=== PATIENT | male | born 1970 | race Caucasian/White ===

== ENCOUNTER 2018-07-17 12:19 | Emergency (ER) | payer OTHER ==
[~2018-07-17] VITALS: Ht 175.3 cm; Wt 78.0 kg
--- OUTSIDE RECORDS SUMMARY | 2018-07-17 12:24 | XMS REPORT ---
Author Author GENERATED, SYSTEM Organization Unknown Address Unknown Phone Unavailable Care Team Providers Care Care Process Manager Name Role Phone UNASSIGNED DOCTOR MD KIARA DOCTOR PP Reason For Visit Chief Complaint FALL Social History Functional Status Vital Signs Results DX Radiology from 06/23/2018 6:06 AMANKLE RIGHT 3 VIEWS History: pain. 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 Pt reports he slipped on wet floor while at [employer] and fell to the right side. Pt c/o headache, dizziness, neck pain, upper back pain, right elbow pain, right hip pain, and right knee pain. Denies LOC. Pt was able to stand and walk following the fall. Technique: 3 view ankle Priors: None. Findings: There is no fracture. The ankle mortise is intact. Impression: Unremarkable radiographs of the right ankle. Electronically signed by: Nik Schmitt Dictated: 06/23/2018 07:36 (Reference Range: not available) HIP RIGHT 2 VIEWS WITH PELVIS History: pain. 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 Pt reports he slipped on wet floor while at [employer] and fell to the right side. Pt c/o headache, dizziness, neck pain, upper back pain, right elbow pain, right hip pain, and right knee pain. Denies LOC. Pt was able to stand and walk following the fall. Technique: Single-view pelvis with two-view right hip Priors: None. Findings: There is no acute fracture. The hip is in normal alignment. There are no significant degenerative changes. Impression: No acute findings. Electronically signed by: Nik Schmitt Dictated: 06/23/2018 07:37 (Reference Range: not available) KNEE RIGHT 3 VIEWS History: pain. 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 Pt reports he slipped on wet floor while at [employer] and fell to the right side. Pt c/o headache, dizziness, neck pain, upper back pain, right elbow pain, right hip pain, and right knee pain. Denies LOC. Pt was able to stand and walk following the fall. Technique: 3 view knee performed. Priors: None. Findings: No acute fractures or subluxations are identified. There is no joint effusion. Impression: Unremarkable radiographs of the right knee. Electronically signed by: Nik Schmitt Dictated: 06/23/2018 07:37 (Reference Range: not available) CT Scan from 06/23/2018 5:43 AMCT CEREBRAL W/O CONTRAST History: fall pain. 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 Pt reports he slipped on wet floor while at [employer] and fell to the right side. Pt c/o headache, dizziness, neck pain, upper back pain, right elbow pain, right hip pain, and right knee pain. Denies LOC. Pt was able to stand and walk following the fall. Technique: All CT scans at are performed using dose optimization techniques as appropriate to a performed exam including the following: Automated exposure control Adjustment of the mA and/or kV according to patient size Use of iterative reconstruction technique Priors: None. Findings: Ventricles and Extra axial spaces: Normal in size and morphology for the patient's age. Hemorrhage: None. Cerebral parenchyma: Normal. Mass effect/midline shift: None. Brainstem/Cerebellum: Normal. Calvarium: Normal. Visualized Paranasal sinuses/Mastoids: Clear. Impression: Unremarkable CT scan of the head. Electronically signed by: Nik Schmitt Dictated: 06/23/2018 07:33 (Reference Range: not available) CT SPINE CERVICAL W/O CONTRAST History: fall pain. 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 Pt reports he slipped on wet floor while at [employer] and fell to the right side. Pt c/o headache, dizziness, neck pain, upper back pain, right elbow pain, right hip pain, and right knee pain. Denies LOC. Pt was able to stand and walk following the fall. Technique: All CT scans at are performed using dose optimization techniques as appropriate to a performed exam including the following: Automated exposure control Adjustment of the mA and/or kV according to patient size Use of iterative reconstruction technique Priors: None. Findings: Cervical alignment is within normal limits. There is no acute fracture. Disc spaces are well maintained. No focal disc protrusions or significant central spinal stenosis is identified. The soft tissues are unremarkable. The lung apices are unremarkable. Impression: Unremarkable CT of the cervical spine. Electronically signed by: Nik Schmitt Dictated: 06/23/2018 07:34 (Reference Range: not available) CT SPINE THORACIC W/O CONTRAST History: fall pain. 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 Pt reports he slipped on wet floor while at [employer] and fell to the right side. Pt c/o headache, dizziness, neck pain, upper back pain, right elbow pain, right hip pain, and right knee pain. Denies LOC. Pt was able to stand and walk following the fall. Technique: All CT scans at are performed using dose optimization techniques as appropriate to a performed exam including the following: Automated exposure control Adjustment of the mA and/or kV according to patient size Use of iterative reconstruction technique Priors: None. Findings: Thoracic alignment is within normal limits No acute Fractures or subluxations are identified. There several chronic Schmorl's nodes identified in the endplates of the mid and lower thoracic spine. Disc spaces are well maintained. No focal disc protrusions or significant central spinal stenosis is identified. Impression: Unremarkable CT of the thoracic spine. Electronically signed by: Nik Schmitt Dictated: 06/23/2018 07:36 (Reference Range: not available) Problems Encounter Diagnosis No relevant problems exist. Encounters Encounter Diagnosis No relevant problems exist. Plan of Care Procedures No relevant procedures performed. Immunizations No immunizations administered or ordered. Hospital Course Hospital Discharge Instructions Allergies, Adverse Reactions, Alerts This section is product support representative of the current allergy information, at the time of the CCD generation. In the case of regeneration of the CCD, the allergy information may not reflect the state of known allergies at the time of the CCD' s subject visit. * Latex Allergy has not been assessed. * IV Contrast Allergy has not been assessed. Medication Medication reconciliation has not been performed.
--- OUTSIDE RECORDS SUMMARY | 2018-07-17 12:25 | XMS REPORT ---
Author Author GENERATED, SYSTEM Organization Unknown Address Unknown Phone Unavailable Care Team Providers Care Head Rose Grower Name Role Phone UNASSIGNED DOCTOR , DOCTOR PP Reason For Visit Chief Complaint BACK PAIN, DIARRHEA Social History Functional Status Vital Signs Results Chemistry from 06/09/2018 6:34 PM*COCAINE NEGATIVE NG/ML (NEG <150 NG/ML) *PCP NEGATIVE NG/ML (NEG <25 NG/ML) *CANNABINOIDS NEGATIVE MG/DL (NEG <50 MG/DL) *BENZODIAZEINE NEGATIVE NG/ML (NEG <200 NG/ML) *METHAMPHETAMINE/AMPHETAMINE NEGATIVE NG/ML (NEG <500 NG/ML) *BARBITURATES NEGATIVE NG/ML (NEG <200 NG/ML) *OPIATES POSITIVE NG/ML A (NEG <300 NG/ML) Chemistry from 06/09/2018 5:55 PMSODIUM 137 MMOL/L (136-145 MMOL/L) POTASSIUM 3.8 MMOL/L (3.5-5.1 MMOL/L) CHLORIDE 101 MMOL/L (98-107 MMOL/L) TCO2 27.1 MMOL/L (21.0-32.0 MMOL/L) *ANION GAP 8.9 MMOL/L (8.0-16.0 MMOL/L) BUN 7 MG/DL (7-18 MG/DL) CREATININE 1.14 MG/DL (0.70-1.30 MG/DL) *BUN/CREATININE RATIO 6.1 L (9.1-17.0 ) GLUCOSE 133 MG/DL H (65-99 MG/DL) *GFR EST NON AFR [place] 76 ML/MIN (Reference Range: not available) *GFR EST AFR AMER 88 ML/MIN (Reference Range: not available) CALCIUM 8.3 MG/DL L (8.5-10.1 MG/DL) BILIRUBIN TOTAL 0.30 MG/DL (0.20-1.00 MG/DL) TOTAL PROTEIN 7.2 GM/DL (6.4-8.2 GM/DL) ALBUMIN 3.9 GM/DL (3.4-5.0 GM/DL) *GLOBULIN 3.3 GM/DL (2.3-3.5 GM/DL) *A/G RATIO 1.2 L (1.5-2.2 ) ALK PHOS 67 U/L (46-116 U/L) ALT (SGPT) 82 U/L H (14-59 U/L) AST (SGOT) 24 U/L (15-37 U/L) LIPASE 80 U/L (73-393 U/L) Hematology from 06/09/2018 5:55 PMWBC 11.8 X10e3/UL H (3.6-11.2 X10e3/UL) RBC 5.15 X10e6/UL (4.06-5.63 X10e6/UL) HEMOGLOBIN 15.2 G/DL (12.5-16.3 G/DL) HEMATOCRIT 45.1 % (36.7-47.1 %) *MCV 87.6 FL (80.0-100.0 FL) *MCH 29.6 PG (27.0-33.0 PG) *MCHC 33.8 G/DL (32.0-36.0 G/DL) *RDW 14.2 % (12.3-17.0 %) *RDWSD 43.8 (37.1-47.8 ) PLATELET 277 X10e3/UL (159-386 X10e3/UL) *MPV 9.6 FL (7.4-10.4 FL) AUTOMATED DIFF PERFORMED (Reference Range: not available) SEGS 82.3 % (Reference Range: not available) *LYMPHOCYTES 13.3 % (Reference Range: not available) *MONOCYTES 3.6 % (Reference Range: not available) *EOSINOPHILS 0.4 % (Reference Range: not available) *BASOPHILS 0.4 % (Reference Range: not available) *ABSOLUTE NEUTROPHILS 9.70 X10e3/UL H (1.80-7.80 X10e3/UL) *ABSOLUTE LYMPHOCYTES 1.60 X10e3/UL (1.00-3.00 X10e3/UL) *ABSOLUTE MONOCYTES 0.40 X10e3/UL (0.30-1.00 X10e3/UL) *ABSOLUTE EOSINOPHILS 0.00 X10e3/UL (0.00-0.50 X10e3/UL) *ABSOLUTE BASOPHILS 0.00 X10e3/UL (0.00-0.20 X10e3/UL) Urinalysis from 06/09/2018 6:34 PM* Status: Final Result URINALYSIS Specimen Number: [id number] Sample Collection Date/Time: 06/09/2018 6:34 PM Specimen Source: *URINE COLOR COLORLESS (COLORLESS - CALE ) *URINE APPEARANCE CLEAR (CLEAR ) URINE PH 6.5 (5.0-8.0 ) URINE SPECIFIC GRAVITY 1.005 (1.001-1.035 ) *URINE GLUCOSE NEGATIVE MG/DL (NEGATIVE MG/DL) *URINE BILIRUBIN NEGATIVE (NEGATIVE ) *URINE KETONES NEGATIVE MG/DL (NEGATIVE MG/DL) *URINE BLOOD NEGATIVE (NEGATIVE ) *URINE PROTEIN 10 MG/DL A (NEGATIVE MG/DL) *URINE UROBILINOGEN NORMAL EU/DL (NORMAL (0.2-1.0) EU/DL) *URINE NITRITES NEGATIVE (NEGATIVE ) *URINE LEUKOCYTES NEGATIVE (NEGATIVE ) Problems Encounter Diagnosis No relevant problems exist. Encounters Encounter Diagnosis No relevant problems exist. Plan of Care Procedures No relevant procedures performed. Immunizations No immunizations administered or ordered. Hospital Course Hospital Discharge Instructions Allergies, Adverse Reactions, Alerts This section is career services representative of the current allergy information, at [...]
--- OUTSIDE RECORDS SUMMARY | 2018-07-17 12:25 | XMS REPORT ---
Author Author Tristen Matthews Organization Unknown Address [address] [place], [place] [id number] Phone Care Team Providers Care Physicist [employer] Name Role Phone Lewisadriana Tristen Butcher PP Unavailable Reason for Referral No Reason for Referral was given. History of Present Illness No HPI available. Problems * Normal Routine History And Physical Adult (V70.0); (Active) * Anxiety (Symptom) (300.00); (Active) * Hyperlipidemia (272.4); (Active) * Lower Back Pain (724.2); (Active) * Inguinal HerniaLeft; (550.90); (Active) Medication * Lortab 10-500 MG Oral Tablet; TAKE 1 TABLET BY MOUTH EVERY 4-6 HOURS (NO MORE THAN 8 TABS IN 24 HOURS); Start Date: 03/10/2013 (Active) Allergies and Adverse Reactions * No Known Drug Allergies (Active) Past Medical History * No Significant Medical History Procedures Procedure Procedure Date Date Completed Status Surgery - - Active Family History * Paternal history of Coronary Artery Disease (Active) * Maternal grandmother's history of Type 2 Diabetes Mellitus (Active) * Paternal history of Hyperlipidemia (Active) * Paternal grandfather's history of Hyperlipidemia (Active) * Maternal grandmother's history of Breast Cancer Comments: at 40 (V16.3); (Active) Social History * Occupation: Comments: [employer] (Active) * Tobacco Use Comments: occasionally quit 10 years ago (V15.82); (Active ) * Marital History - (V61.03); (Active) * Former Smoker (V15.82); (Active) * No History of Alcohol Use (Active) Vital Signs Date Description Test Result 03 May 2013 09:08 AM recorded by: Sandra Pierce Heart Rate 87 /min Resipration Rate 14 /min O2 SAT 99 % Advance Directives * No Advance Directives available. Encounters * Appointment 05/03/2013
--- OUTSIDE RECORDS SUMMARY | 2018-07-17 12:25 | XMS REPORT ---
Author Author GENERATED, SYSTEM Organization Unknown Address Unknown Phone Unavailable Care Team Providers Care Habilitation Training Specialist Name Role Phone UNASSIGNED DOCTOR , DOCTOR PP Reason For Visit Chief Complaint VOMITING Social History Functional Status Vital Signs Results Chemistry from 06/16/2018 6:50 PMSODIUM 139 MMOL/L (136-145 MMOL/L) POTASSIUM 4.1 MMOL/L (3.5-5.1 MMOL/L) CHLORIDE 106 MMOL/L (98-107 MMOL/L) TCO2 25.7 MMOL/L (21.0-32.0 MMOL/L) *ANION GAP 7.3 MMOL/L L (8.0-16.0 MMOL/L) BUN 13 MG/DL (7-18 MG/DL) CREATININE 1.08 MG/DL (0.70-1.30 MG/DL) *BUN/CREATININE RATIO 12.0 (9.1-17.0 ) GLUCOSE 111 MG/DL H (65-99 MG/DL) *GFR EST NON AFR [place] 81 ML/MIN (Reference Range: not available) *GFR EST AFR AMER >90 ML/MIN (Reference Range: not available) CALCIUM 8.1 MG/DL L (8.5-10.1 MG/DL) BILIRUBIN TOTAL 0.20 MG/DL (0.20-1.00 MG/DL) TOTAL PROTEIN 6.7 GM/DL (6.4-8.2 GM/DL) ALBUMIN 3.8 GM/DL (3.4-5.0 GM/DL) *GLOBULIN 2.9 GM/DL (2.3-3.5 GM/DL) *A/G RATIO 1.3 L (1.5-2.2 ) ALK PHOS 59 U/L (46-116 U/L) ALT (SGPT) 44 U/L (14-59 U/L) AST (SGOT) 17 U/L (15-37 U/L) LIPASE 110 U/L (73-393 U/L) Hematology from 06/16/2018 6:50 PMWBC 8.8 X10e3/UL (3.6-11.2 X10e3/UL) RBC 4.68 X10e6/UL (4.06-5.63 X10e6/UL) HEMOGLOBIN 14.0 G/DL (12.5-16.3 G/DL) HEMATOCRIT 40.9 % (36.7-47.1 %) *MCV 87.2 FL (80.0-100.0 FL) *MCH 29.8 PG (27.0-33.0 PG) *MCHC 34.2 G/DL (32.0-36.0 G/DL) *RDW 14.1 % (12.3-17.0 %) *RDWSD 43.8 (37.1-47.8 ) PLATELET 238 X10e3/UL (159-386 X10e3/UL) *MPV 9.1 FL (7.4-10.4 FL) AUTOMATED DIFF PERFORMED (Reference Range: not available) SEGS 60.7 % (Reference Range: not available) *LYMPHOCYTES 23.3 % (Reference Range: not available) *MONOCYTES 6.8 % (Reference Range: not available) *EOSINOPHILS 8.7 % (Reference Range: not available) *BASOPHILS 0.5 % (Reference Range: not available) *ABSOLUTE NEUTROPHILS 5.40 X10e3/UL (1.80-7.80 X10e3/UL) *ABSOLUTE LYMPHOCYTES 2.10 X10e3/UL (1.00-3.00 X10e3/UL) *ABSOLUTE MONOCYTES 0.60 X10e3/UL (0.30-1.00 X10e3/UL) *ABSOLUTE EOSINOPHILS 0.80 X10e3/UL H (0.00-0.50 X10e3/UL) *ABSOLUTE BASOPHILS 0.00 X10e3/UL (0.00-0.20 X10e3/UL) Problems Encounter Diagnosis No relevant problems exist. Encounters Encounter Diagnosis No relevant problems exist. Plan of Care Procedures No relevant procedures performed. Immunizations No immunizations administered or ordered. Hospital Course Hospital Discharge Instructions Allergies, Adverse Reactions, Alerts This section is health and safety representative of the current allergy information, at [...]
--- OUTSIDE RECORDS SUMMARY | 2018-07-17 12:25 | XMS REPORT ---
Author Author Tristen Matthews Organization Unknown Address [address] [place], [place] [id number] Phone Care Team Providers Care Railroad Crane Operator Name Role Phone Lewisadriana Tristen Butcher PP [...] (V16.3); (Active) Social History * Occupation: Comments: [email or web address] (Active) * Tobacco Use Comments: occasionally quit 10 years ago (V15.82); (Active ) * Marital History - (V61.03); (Active) * Former Smoker (V15.82); (Active) * No History of Alcohol Use (Active) Vital Signs Date Description Test Result 13 Apr 2013 01:33 PM recorded by: Divina Saldaña Temperature 97.9 F Heart Rate 67 /min O2 SAT 97 % Advance Directives * No Advance Directives available. Encounters * AUDIT 04/14/2013
--- OUTSIDE RECORDS SUMMARY | 2018-07-17 12:25 | XMS REPORT ---
Author Author Tristen Matthews Organization Unknown Address [address] [place], [place] [id number] Phone Care Team Providers Care Oracle Specialist Name Role Phone Lewisadriana Tristen Butcher PP [...] (V16.3); (Active) Social History * Occupation: Comments: [employer] (Active) * Tobacco Use Comments: occasionally quit 10 years ago (V15.82); (Active ) * Marital History - (V61.03); (Active) * Former Smoker (V15.82); (Active) * No History of Alcohol Use (Active) Vital Signs Date Description Test Result 05 Apr 2013 02:16 PM recorded by: Sandra Gabriel Temperature 97.6 F Heart Rate 83 /min Resipration Rate 16 /min Advance Directives * No Advance Directives available. Encounters * AUDIT 04/06/2013
--- OUTSIDE RECORDS SUMMARY | 2018-07-17 12:25 | XMS REPORT ---
Author Author GENERATED, SYSTEM Organization Unknown Address Unknown Phone Unavailable Care Team Providers Care Solutions Specialist Name Role Phone UNASSIGNED DOCTOR , DOCTOR PP Reason For Visit Chief Complaint ABD PAIN,LEFT WITHOUT BEING SEEN Social History Functional Status Vital Signs Results Problems Encounter Diagnosis No relevant problems exist. Encounters Encounter Diagnosis No relevant problems exist. Plan of Care Procedures No relevant procedures performed. Immunizations No immunizations administered or ordered. Hospital Course Hospital Discharge Instructions Allergies, Adverse Reactions, Alerts This section is inventory representative of the current allergy information, at [...]
--- OUTSIDE RECORDS SUMMARY | 2018-07-17 12:25 | XMS REPORT | Referral Summary ---
Author Author [facility] Organization [facility] Address Unknown Phone Unavailable Care Team Providers Care Geodetic Survey Director Name Role Phone Mann Beltran PCP Encounter VC Date(s): 11/01/17 - 11/01/17 [facility] [address] [place] [address] Discharge Diagnosis: Muscle strain Discharge Diagnosis: Hip pain Discharge Disposition: 01-Home or Self Care Attending Physician: Dolly Olivarez MD Admitting Physician: Dolly Olivarez MD Vital Signs Most recent to 1 oldest [Reference Range]: Temperature Oral 36.6 degC [35.8-37.3 degC] (11/01/17 3:30 PM) Peripheral Pulse 72 bpm Rate [60-100 bpm] (11/01/17 4:45 PM) Respiratory Rate 16 br/min [14-20 br/min] (11/01/17 4:45 PM) Blood Pressure 125/87 mmHg [90-140/60-90 mmHg] (11/01/17 4:45 PM) SpO2 97 % (11/01/17 4:45 PM) Problem List Condition Effective Dates Status Health Status Informant Chronic low back Active patient pain(Confirmed) Depression(Confirmed Active patient ) Allergies, Adverse Reactions, Alerts No Known Allergies Medications gabapentin 300 mg oral capsule mg caps, Oral, TID, 0 Refill(s) Start Date: 11/01/17 Status: Ordered Icy Hot topical ointment 1 sophia, Topical, TID, # 30 g, 0 Refill(s) Start Date: 11/01/17 Stop Date: 11/05/17 Status: Ordered Lexapro 10 mg oral tablet mg tabs, Oral, Daily, 0 Refill(s) Start Date: 11/01/17 Status: Ordered naproxen 250 mg oral tablet 250 mg 1 tabs, Oral, q8hr, as needed for pain, # 12 tabs, 0 Refill(s) Start Date: 11/01/17 Stop Date: 11/04/17 Status: Ordered Xanax Oral, TID, 0 Refill(s) Start Date: 11/01/17 Status: Ordered Results Toxicology Most recent to 1 oldest [Reference Range]: U Amphetamine Scrn Negative (11/01/17 3:52 PM) U Cocaine Scrn Negative (11/01/17 3:52 PM) U Cannab Scrn Negative (11/01/17 3:52 PM) U Opiate Scrn Negative (11/01/17 3:52 PM) U PCP Scrn Negative (11/01/17 3:52 PM) U Benzodiazepine Positive Scrn *ABN* (11/01/17 3:52 PM) U Barbiturate Scrn Negative (11/01/17 3:52 PM) Methadone Lvl Negative (11/01/17 3:52 PM) Tricyclics Negative 1 (11/01/17 3:52 PM) 1Result Comment: Cut-off concentrations: Amphetamines: 1000 ng/mL Cocaine: 300 ng/mL Cannabinoid: 50 ng/mL Opiate: 300 ng/mL Phencyclidine (PCP): 25 ng/mL Benzodiazepine: 200 ng/mL Barbiturate: 200 ng/mL Methadone: 300 ng/mL Tricyclic: 300 ng/mL The urine drug screen assays are qualitative screens. A more specific GC/MS method must be performed to obtain a confirmed analytical result. Unconfirmed screening results must not be used for non-medical purposes(e.g. employment or legal testing) Urinalysis Most recent to 1 oldest [Reference Range]: UA Color Lt Yellow (11/01/17 3:52 PM) UA Appear Clear (11/01/17 3:52 PM) UA pH [5.0-8.0] 7.0 (11/01/17 3:52 PM) UA Leuk Est Negative [Negative] (11/01/17 3:52 PM) UA Nitrite Negative [Negative] (11/01/17 3:52 PM) UA Protein Negative [Negative] (11/01/17 3:52 PM) UA Glucose Negative [Negative] (11/01/17 3:52 PM) UA Ketones Negative [Negative] (11/01/17 3:52 PM) UA Urobilinogen Negative [<1.0] (11/01/17 3:52 PM) UA Bili [Negative] Negative (11/01/17 3:52 PM) UA Blood [Negative] Negative (11/01/17 3:52 PM) UA Spec Grav 1.004 [1.003-1.030] (11/01/17 3:52 PM) Type Clean Catch (11/01/17 3:52 PM) Immunizations No data available for this section Procedures No data available for this section Social History Social History Type Response Smoking Status 4 or less cigarettes(less than 1/4 pack)/day in last 30 days entered on: 11/01/17 Assessment and Plan No data available for this section
--- OUTSIDE RECORDS SUMMARY | 2018-07-17 12:25 | XMS REPORT ---
Author Author GENERATED, SYSTEM Organization Unknown Address Unknown Phone Unavailable Care Team Providers Care System Development Engineer Name Role Phone UNASSIGNED DOCTOR , DOCTOR PP Reason For Visit Chief Complaint ABD PAIN Social History Functional Status Vital Signs Results Chemistry from 06/01/2018 11:46 AMSODIUM 139 MMOL/L (136-145 MMOL/L) POTASSIUM 3.9 MMOL/L (3.5-5.1 MMOL/L) CHLORIDE 101 MMOL/L (98-107 MMOL/L) TCO2 27.7 MMOL/L (21.0-32.0 MMOL/L) *ANION GAP 10.3 MMOL/L (8.0-16.0 MMOL/L) BUN 12 MG/DL (7-18 MG/DL) CREATININE 1.09 MG/DL (0.70-1.30 MG/DL) *BUN/CREATININE RATIO 11.0 (9.1-17.0 ) GLUCOSE 109 MG/DL H (65-99 MG/DL) *GFR EST NON AFR [place] 80 ML/MIN (Reference Range: not available) *GFR EST AFR AMER >90 ML/MIN (Reference Range: not available) CALCIUM 9.4 MG/DL (8.5-10.1 MG/DL) BILIRUBIN TOTAL 0.40 MG/DL (0.20-1.00 MG/DL) TOTAL PROTEIN 7.8 GM/DL (6.4-8.2 GM/DL) ALBUMIN 4.4 GM/DL (3.4-5.0 GM/DL) *GLOBULIN 3.4 GM/DL (2.3-3.5 GM/DL) *A/G RATIO 1.3 L (1.5-2.2 ) ALK PHOS 67 U/L (46-116 U/L) ALT (SGPT) 43 U/L (14-59 U/L) AST (SGOT) 20 U/L (15-37 U/L) LIPASE 124 U/L (73-393 U/L) C-REACTIVE PROTEIN 0.08 MG/DL (0.00-0.30 MG/DL) Hematology from 06/01/2018 11:46 AMWBC 11.6 X10e3/UL H (3.6-11.2 X10e3/UL) RBC 5.47 X10e6/UL (4.06-5.63 X10e6/UL) HEMOGLOBIN 16.2 G/DL (12.5-16.3 G/DL) HEMATOCRIT 47.7 % H (36.7-47.1 %) *MCV 87.3 FL (80.0-100.0 FL) *MCH 29.6 PG (27.0-33.0 PG) *MCHC 33.9 G/DL (32.0-36.0 G/DL) *RDW 13.6 % (12.3-17.0 %) *RDWSD 41.6 (37.1-47.8 ) PLATELET 269 X10e3/UL (159-386 X10e3/UL) *MPV 9.6 FL (7.4-10.4 FL) AUTOMATED DIFF PERFORMED (Reference Range: not available) SEGS 73.0 % (Reference Range: not available) *LYMPHOCYTES 19.3 % (Reference Range: not available) *MONOCYTES 4.9 % (Reference Range: not available) *EOSINOPHILS 2.2 % (Reference Range: not available) *BASOPHILS 0.6 % (Reference Range: not available) *ABSOLUTE NEUTROPHILS 8.50 X10e3/UL H (1.80-7.80 X10e3/UL) *ABSOLUTE LYMPHOCYTES 2.20 X10e3/UL (1.00-3.00 X10e3/UL) *ABSOLUTE MONOCYTES 0.60 X10e3/UL (0.30-1.00 X10e3/UL) *ABSOLUTE EOSINOPHILS 0.30 X10e3/UL (0.00-0.50 X10e3/UL) *ABSOLUTE BASOPHILS 0.10 X10e3/UL (0.00-0.20 X10e3/UL) Urinalysis from 06/01/2018 11:40 AM*URINE COLOR LIGHT YELLOW (COLORLESS - CALE ) *URINE APPEARANCE CLEAR (CLEAR ) URINE PH 7.0 (5.0-8.0 ) URINE SPECIFIC GRAVITY 1.006 (1.001-1.035 ) *URINE GLUCOSE NEGATIVE MG/DL (NEGATIVE MG/DL) *URINE BILIRUBIN NEGATIVE (NEGATIVE ) *URINE KETONES NEGATIVE MG/DL (NEGATIVE MG/DL) *URINE BLOOD NEGATIVE (NEGATIVE ) *URINE PROTEIN NEGATIVE MG/DL (NEGATIVE MG/DL) *URINE UROBILINOGEN NORMAL EU/DL (NORMAL (0.2-1.0) EU/DL) *URINE NITRITES NEGATIVE (NEGATIVE ) *URINE LEUKOCYTES NEGATIVE (NEGATIVE ) Problems Encounter Diagnosis No relevant problems exist. Encounters Encounter Diagnosis No relevant problems exist. Plan of Care Procedures No relevant procedures performed. Immunizations No immunizations administered or ordered. Hospital Course Hospital Discharge Instructions Allergies, Adverse Reactions, Alerts This section is wholesale representative of the current allergy information, at [...]
--- OUTSIDE RECORDS SUMMARY | 2018-07-17 12:25 | XMS REPORT ---
Author Author GENERATED, SYSTEM Organization Unknown Address Unknown Phone Unavailable Care Team Providers Care Foundry Tender Name Role Phone MD NIKOLE, LYDIA GOMEZ PP Reason For Visit Chief Complaint FLANK PAIN Social History Functional Status Vital Signs Results Chemistry from 05/27/2018 4:00 PMSODIUM 142 MMOL/L (136-145 MMOL/L) POTASSIUM 4.3 MMOL/L (3.5-5.1 MMOL/L) CHLORIDE 107 MMOL/L (98-107 MMOL/L) TCO2 24.6 MMOL/L (21.0-32.0 MMOL/L) *ANION GAP 10.4 MMOL/L (8.0-16.0 MMOL/L) BUN 14 MG/DL (7-18 MG/DL) CREATININE 0.96 MG/DL (0.70-1.30 MG/DL) *BUN/CREATININE RATIO 14.6 (9.1-17.0 ) GLUCOSE 128 MG/DL H (65-99 MG/DL) *GFR EST NON AFR YEMENI >90 ML/MIN (Reference Range: not available) *GFR EST AFR AMER >90 ML/MIN (Reference Range: not available) CALCIUM 8.5 MG/DL (8.5-10.1 MG/DL) BILIRUBIN TOTAL 0.40 MG/DL (0.20-1.00 MG/DL) TOTAL PROTEIN 6.8 GM/DL (6.4-8.2 GM/DL) ALBUMIN 3.9 GM/DL (3.4-5.0 GM/DL) *GLOBULIN 2.9 GM/DL (2.3-3.5 GM/DL) *A/G RATIO 1.3 L (1.5-2.2 ) ALK PHOS 54 U/L (46-116 U/L) ALT (SGPT) 45 U/L (14-59 U/L) AST (SGOT) 21 U/L (15-37 U/L) LIPASE 74 U/L (73-393 U/L) TROPONIN-I <0.017 NG/ML (0.000-0.056 NG/ML) Hematology from 05/27/2018 4:00 PMWBC 8.9 X10e3/UL (3.6-11.2 X10e3/UL) RBC 4.93 X10e6/UL (4.06-5.63 X10e6/UL) HEMOGLOBIN 14.6 G/DL (12.5-16.3 G/DL) HEMATOCRIT 43.4 % (36.7-47.1 %) *MCV 88.1 FL (80.0-100.0 FL) *MCH 29.6 PG (27.0-33.0 PG) *MCHC 33.6 G/DL (32.0-36.0 G/DL) *RDW 13.5 % (12.3-17.0 %) *RDWSD 42.0 (37.1-47.8 ) PLATELET 238 X10e3/UL (159-386 X10e3/UL) *MPV 9.7 FL (7.4-10.4 FL) AUTOMATED DIFF PERFORMED (Reference Range: not available) SEGS 75.7 % (Reference Range: not available) *LYMPHOCYTES 17.1 % (Reference Range: not available) *MONOCYTES 5.9 % (Reference Range: not available) *EOSINOPHILS 1.1 % (Reference Range: not available) *BASOPHILS 0.2 % (Reference Range: not available) *ABSOLUTE NEUTROPHILS 6.70 X10e3/UL (1.80-7.80 X10e3/UL) *ABSOLUTE LYMPHOCYTES 1.50 X10e3/UL (1.00-3.00 X10e3/UL) *ABSOLUTE MONOCYTES 0.50 X10e3/UL (0.30-1.00 X10e3/UL) *ABSOLUTE EOSINOPHILS 0.10 X10e3/UL (0.00-0.50 X10e3/UL) *ABSOLUTE BASOPHILS 0.00 X10e3/UL (0.00-0.20 X10e3/UL) Urinalysis from 05/27/2018 4:49 PM*URINE COLOR LIGHT YELLOW (COLORLESS - CALE ) *URINE APPEARANCE CLEAR (CLEAR ) URINE PH 6.5 (5.0-8.0 ) URINE SPECIFIC GRAVITY 1.019 (1.001-1.035 ) *URINE GLUCOSE NEGATIVE MG/DL (NEGATIVE MG/DL) *URINE BILIRUBIN NEGATIVE (NEGATIVE ) *URINE KETONES NEGATIVE MG/DL (NEGATIVE MG/DL) *URINE BLOOD NEGATIVE (NEGATIVE ) *URINE PROTEIN NEGATIVE MG/DL (NEGATIVE MG/DL) *URINE UROBILINOGEN NORMAL EU/DL (NORMAL (0.2-1.0) EU/DL) *URINE NITRITES NEGATIVE (NEGATIVE ) *URINE LEUKOCYTES NEGATIVE (NEGATIVE ) CT Scan from 05/27/2018 3:44 PMCT ABD/PELVIS W/O CONTRAST History: flank pain. 47 year old M presents to the ED c/o Right sided flank pain that radiates to epigastric area and groin. Pt has been having slight burning with urination, but states that it is also difficult to get the urine out when he goes. 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 Pt denies hx of kidney stones, he still has his gall bladder. Technique: All CT scans at are performed using dose optimization techniques as appropriate to a performed exam including the following: Automated exposure control Adjustment of the mA and/or kV according to patient size Use of iterative reconstruction technique Priors: None. Findings: Abdomen Lung bases: Clear Liver: Normal density. No definable mass. Spleen: Normal. Pancreas: No discrete mass or inflammatory process. Gallbladder and biliary tract: No radiodense calculus or dilation. Adrenal glands: Normal. Kidneys: No nephrolithiasis. No Hydronephrosis. Urinary Bladder: Normal. Aorta: Normal in caliber. No periaortic lymphadenopathy. Bowel and Mesentery: Grossly normal. No findings of appendicitis. Ascites: None. Pelvis Lymphadenopathy: None. Reproductive: Unremarkable. Osseous Structures: No suspicious findings. Impression: No evidence of urinary tract calculus or obstruction or acute abdominopelvic inflammatory process. Electronically signed by: Jenn Summers Dictated: 05/27/2018 15:48 (Reference Range: not available) Problems Encounter Diagnosis No relevant problems exist. Encounters Encounter Diagnosis No relevant problems exist. Plan of Care Procedures No relevant procedures performed. Immunizations No immunizations administered or ordered. Hospital Course Hospital Discharge Instructions Allergies, Adverse Reactions, Alerts This section is licensing representative of the current allergy information, at [...]
--- OUTSIDE RECORDS SUMMARY | 2018-07-17 12:26 | XMS REPORT ---
Author Author Tristen Matthews Organization Unknown Address [address] [place], [place] [phone] Phone Care Team Providers Care Service Transformer Repair Supervisor Name Role Phone Lewisadriana Tristen Butcher PP [...] (V16.3); (Active) Social History * Occupation: Comments: [employer] (Active) * Tobacco Use Comments: occasionally quit 10 years ago (V15.82); (Active ) * Marital History - (V61.03); (Active) * Former Smoker (V15.82); (Active) * No History of Alcohol Use (Active) Vital Signs Date Description Test Result 30 Mar 2013 04:31 PM recorded by: Melvi Montiel Temperature 98.2 F Heart Rate 68 /min O2 SAT 98 % 29 Mar 2013 11:19 AM recorded by: Divina Saldaña BP Systolic 135 mm[Hg] BP Diastolic 90 mm[Hg] Heart Rate 70 /min O2 SAT 98 % Advance Directives * No Advance Directives available. Encounters * AUDIT 04/01/2013
--- OUTSIDE RECORDS SUMMARY | 2018-07-17 12:26 | XMS REPORT ---
Author Author Tristen Matthews Organization Unknown Address [address] [place], [place] [id number] Phone Care Team Providers Care Watch Hairspring Assembler Name Role Phone Lewisadriana Tristen Butcher PP [...] (V16.3); (Active) Social History * Occupation: Comments: [employer] (Active) * Tobacco Use Comments: occasionally quit 10 years ago (V15.82); (Active ) * Marital History - (V61.03); (Active) * Former Smoker (V15.82); (Active) * No History of Alcohol Use (Active) Vital Signs Date Description Test Result 21 Apr 2013 10:27 AM recorded by: Melvi Montiel Temperature 97.8 F Heart Rate 77 /min O2 SAT 98 % Advance Directives * No Advance Directives available. Encounters * Appointment 04/21/2013
--- OUTSIDE RECORDS SUMMARY | 2018-07-17 12:26 | XMS REPORT | Summary of Care ---
Author Author Dereck Zaragoza M.D. Organization Unknown Address [address] [place], [place] [phone] Phone Unavailable Care Team Providers Care Precinct Police Lieutenant Name Role Phone Dereck Zaragoza M.D. Unavailable Unavailable Unavailable Unavailable Functional Status Functional Status Health Issues* Name Dates Details Functional status health issues are not documented Status: Cognitive Status Health Issues* Name Dates Details Cognitive status health issues are not documented Status: Problems Name Dates Details Lower back pain (724.2, M54.5) Status: Active Anxiety (300.00, F41.9) Status: Active Inguinal hernia (550.90, K40.90) Status: Active Hyperlipidemia (272.4, E78.5) Status: Active Pain in wrist, left Status: Active Shoulder strain (840.9, S46.919A) Status: Active Shoulder pain (719.41, M25.519) Status: Active Encounter related to worker's compensation claim (V70.3, Z02.6) Status: Active Medications Name Dates Details OxyCODONE HCl - 5 MG Oral Tablet TAKE 1 1/2 TABLETS EVERY 6 HOURS NEEDED FOR PAIN. Quantity: 50 Dereck Zaragoza M.D.* Started 09-Sep-2014 Active Allergies and Adverse Reactions Name Dates Details tramadol Status: Active Procedures Procedure Dates Details Procedures not documented Immunization Name Dates Details Immunizations not documented Family History Grandmother* Name Dates Details Family history of Type 2 Diabetes Mellitus Status: Active Family history of Breast Cancer (V16.3) Status: Active Grandfather* Name Dates Details Family history of Hyperlipidemia Status: Active Father* Name Dates Details Family history of Coronary Artery Disease Status: Active Family history of Hyperlipidemia Status: Active Social History Name Dates Details Smoking Status* Former smoker Vital Signs Date Test Result Details No Known Vitals to report Results Date Description Value Details Results not documented Plan of Care Planned Observations* Name Dates Details Planned Goals not documented Goal Instructions * Instructions not documented Encounters Appointment; Hamilton Fitzgerald Encounter Diagnosis: Problem not documented On 17-Oct-2014 10:00 Appointment; Dereck Zaragoza Encounter Diagnosis: Problem not documented On 03-Oct-2014 08:45 Appointment; Tristen Matthews Encounter Diagnosis: Problem not documented On 30-Sep-2014 16:20 Appointment; Dereck Zaragoza Encounter Diagnosis: Problem not documented On 26-Sep-2014 13:30 Appointment; Dereck Zaragoza Encounter Diagnosis: Problem not documented On 21-Sep-2014 14:15 Appointment; Dereck Zaragoza Encounter Diagnosis: Problem not documented On 16-Sep-2014 15:45 Appointment; Dereck Zaragoza Encounter Diagnosis: Problem not documented On 12-Sep-2014 08:45 Appointment; Dereck Zaragoza Encounter Diagnosis: Problem not documented On 08-Sep-2014 10:15 Appointment; French Carlson Encounter Diagnosis: Problem not documented On 09:00 Appointment; Laxmi Sullivan Encounter Diagnosis: Problem not documented On 10:30 Appointment; Davey Dickson Encounter Diagnosis: Problem not documented On 11:30 Appointment; Christina Woods Encounter Diagnosis: Problem not documented On 31-Dec-2013 13:15 Appointment; Christina Woods Encounter Diagnosis: Problem not documented On 20-Dec-2013 15:45 Appointment; Davey Dickson Encounter Diagnosis: Problem not documented On 23-Nov-2013 14:30 Appointment; Davey Dickson Encounter Diagnosis: Problem not documented On 19-Nov-2013 09:00 Appointment; Tristen Matthews Encounter Diagnosis: Problem not documented On 08:30 Appointment; Tristen Matthews Encounter Diagnosis: Problem not documented On 14:45 Appointment; Tristen Matthews Encounter Diagnosis: Problem not documented On 15:00 Appointment; Tristen Mtathews Encounter Diagnosis: Problem not documented On 10:00 Appointment; Skip Mills Encounter Diagnosis: Problem not documented On 09:15 Appointment; Tristen Matthews Encounter Diagnosis: Problem not documented On 08:45 Appointment; Tristen Matthews Encounter Diagnosis: Problem not documented On 08:50 Appointment; Tristen Matthews Encounter Diagnosis: Problem not documented On 09:15 Appointment; Tristen Matthews Encounter Diagnosis: Problem not documented On 10:30 Appointment; Tristen Matthews Encounter Diagnosis: Problem not documented On 15-Apr-2013 16:45 Appointment; Tristen Matthews Encounter Diagnosis: Problem not documented On 13-Apr-2013 12:50 Appointment; Tristen Matthews Encounter Diagnosis: Problem not documented On 05-Apr-2013 14:00 Appointment; Tristen Matthews Encounter Diagnosis: Problem not documented On 30-Mar-2013 16:30 Appointment; Tristen Matthews Encounter Diagnosis: Problem not documented On 29-Mar-2013 11:15 Appointment; Ayad Amado Diagnosis: Problem not documented On 24-Mar-2013 09:00 Appointment; Tristen Matthews Encounter Diagnosis: Problem not documented On 22-Mar-2013 12:50 Appointment; Tristen Matthews Encounter Diagnosis: Problem not documented On 16-Mar-2013 14:15 Appointment; Ayad Amado Diagnosis: Problem not documented On 10-Mar-2013 09:00 Appointment; Tristen Matthews Diagnosis: Problem not documented On 08-Mar-2013 09:15 Appointment; Tristen Matthews Encounter Diagnosis: Problem not documented On 02-Mar-2013 17:45
--- OUTSIDE RECORDS SUMMARY | 2018-07-17 12:26 | XMS REPORT | Summary of Care ---
Author Author Dereck Zaragoza M.D. Organization Unknown Address [address] [place], [place] [phone] Phone Unavailable Care Team Providers Care Drop Wire Operator Name Role Phone Dereck Zaragoza M.D. Unavailable [...] Problem not documented On 15:00 Appointment; Tristen Matthews Encounter Diagnosis: Problem not documented On 10:00 [...]
--- OUTSIDE RECORDS SUMMARY | 2018-07-17 12:26 | XMS REPORT | Summary of Care ---
Author Author Dereck Zaragoza M.D. Organization Unknown Address [address] [place], [place] [phone] Phone Unavailable Care Team Providers Care Drug Safety Coordinator Name Role Phone Dereck Zaragoza M.D. Unavailable [...] Problem not documented On 11:30 Appointment; Christina Wodos Encounter Diagnosis: Problem not documented On 31-Dec-2013 [...] Diagnosis: Problem not documented On 15:00 Appointment; Tritsen Matthews Encounter Diagnosis: Problem not documented On [...] Problem not documented On 15-Apr-2013 16:45 Appointment; rTisten Matthews Encounter Diagnosis: Problem not documented On [...]
--- OUTSIDE RECORDS SUMMARY | 2018-07-17 12:26 | XMS REPORT | Summary of Care ---
Author Author Guadalupe Matthews M.D. [facility] [place] Unknown Address [address] [place], [place] [phone] Phone Unavailable Care Team Providers Care Occupational Therapy Director Name Role Phone Dereck Zaragoza M.D. Unavailable Unavailable Verify PCP PP Unavailable Unavailable Unavailable Functional Status Functional Status [...] worker's compensation claim (V70.3, Z02.6) Status: Active Crushing injury of hand, left (927.20, S67.22XA) Status: Active Medications Name Dates Details OxyCODONE HCl - 5 MG Oral Tablet TAKE 1 1/2 TABLETS EVERY 6 HOURS NEEDED FOR PAIN. Quantity: 50 Dereck Zaragoza M.D.* Started 09-Sep-2014 ActiveALPRAZolam 0.5 MG Oral Tablet * Refills: 0 * Started 29-Dec-2015 ActiveGabapentin 300 MG Oral Capsule * Refills: 0 * Started 29-Dec-2015 Active Allergies and Adverse Reactions Name Dates [...] smoker Vital Signs Date Test Result Details 01-Jan-2016 16:39 BP Systolic 110 mm[Hg] Status: BP Diastolic 70 mm[Hg] Status: Temperature 97.7 f Status: Heart Rate 84 /min Status: O2 SAT 98 % Status: 29-Dec-2015 17:23 BP Systolic 118 mm[Hg] Status: BP Diastolic 68 mm[Hg] Status: Temperature 97.5 f Status: Heart Rate 80 /min Status: Weight 161 lb Status: O2 SAT 98 % Status: Body Mass Index Calculated 23.78 kg/m2 Status: Body Surface Area Calculated 1.88 m2 Status: Results Date Description Value Details 01-Jan-2016 08:49 XRay SHOULDER-Left Comments: Exam Date: 12/29/2015 17: 29Dictation Date: 01/01/2016 08:49 X SHOULDER COMP (MIN 2V) LT (Better) 08:50 XRay WRIST-Left Comments: Exam Date: 12/29/2015 17:31Dictation Date: 01/01/2016 08:50 X WRIST COMP (MIN 3V) LT (Better) 08:51 XRay HAND-Left Comments: Exam Date: 12/29/2015 17:29Dictation Date : 01/01/2016 08:51 X HAND COMP (MIN 3V) LT (Better) Plan of Care Planned Observations* Name Dates Details Planned Goals not documented Goal Instructions * Instructions not documented Encounters Appointment; Tristen Matthews Encounter Diagnosis: Problem not documented On 01-Jan-2016 16:30 Appointment; Tristen Matthews Encounter Diagnosis: Problem not documented On 29-Dec-2015 14:35 Appointment; Hamilton Fitzgerald Encounter Diagnosis: Problem not [...]
--- OUTSIDE RECORDS SUMMARY | 2018-07-17 12:26 | XMS REPORT | Summary of Care ---
Author Author Guadalupe Matthews M.D. [facility] Unknown Address [address] [place], [place] [phone] Phone Unavailable Care Team Providers Care Nurse Clinical Name Role Phone Dereck Zaragoza M.D. Unavailable [...] tramadol Status: Active Procedures Procedure Dates Details XRay WRIST-Left Ordered:29-Dec-2015 XRay HAND-Left Ordered:29-Dec-2015 XRay SHOULDER-Left Ordered:29-Dec-2015 Immunization Name Dates Details Immunizations not documented [...] smoker Vital Signs Date Test Result Details 29-Dec-2015 17:23 BP Systolic 118 mm[Hg] Status: BP Diastolic 68 mm[Hg] Status: Temperature 97.5 f Status: Heart Rate 80 /min Status: Weight 161 lb Status: O2 SAT 98 % Status: Body Mass Index Calculated 23.78 kg/m2 Status: Body Surface Area Calculated 1.88 m2 Status: Results Date Description Value Details Results not [...]
--- OUTSIDE RECORDS SUMMARY | 2018-07-17 12:27 | XMS REPORT ---
Author Author Tristen Matthews Organization Unknown Address [address] [place], [place] [phone] Phone Care Team Providers Care Supervisor Grove Name Role Phone Lewisadriana Tristen Butcher PP [...] (V16.3); (Active) Social History * Occupation: Comments: [employer] (Active) * Tobacco Use Comments: occasionally quit 10 years ago (V15.82); (Active ) * Marital History - (V61.03); (Active) * Former Smoker (V15.82); (Active) * No History of Alcohol Use (Active) Vital Signs Date Description Test Result 22 Mar 2013 01:56 PM recorded by: Sandra Pierce Heart Rate 86 /min Resipration Rate 14 /min O2 SAT 99 % Advance Directives * No Advance Directives available. Encounters * AUDIT 03/22/2013 * RTNPT , Provider: Aneudy Lion, Status: Can , Time: 9:00 AM 03/24/2013 * RTNPT , Provider: Aneudy Lion, Status: Pen , Time: 9:00 AM 03/24/2013
--- OUTSIDE RECORDS SUMMARY | 2018-07-17 12:27 | XMS REPORT | Summary of Care ---
Author Author Dereck Zaragoza M.D. Organization Unknown Address [address] [place], [place] [phone] Phone Unavailable Care Team Providers Care Commissioning Manager Name Role Phone Dereck Zaragoza M.D. Unavailable [...]
--- OUTSIDE RECORDS SUMMARY | 2018-07-17 12:27 | XMS REPORT | Summary of Care ---
Author Author Dereck Zaragoza M.D. Organization Unknown Address [address] [place], [place] [phone] Phone Unavailable Care Team Providers Care Toucher Up Name Role Phone Dereck Zaragoza M.D. Unavailable [...]
--- OUTSIDE RECORDS SUMMARY | 2018-07-17 12:27 | XMS REPORT ---
Author Author Tristen Matthews Organization Unknown Address [address] [place], [place] [phone] Phone Care Team Providers Care Lasting Machine Operator Bed Name Role Phone Lewisadriana Tristen Butcher PP [...] (V16.3); (Active) Social History * Occupation: Comments: [employer] (Active) * Tobacco Use Comments: occasionally quit 10 years ago (V15.82); (Active ) * Marital History - (V61.03); (Active) * Former Smoker (V15.82); (Active) * No History of Alcohol Use (Active) Vital Signs Date Description Test Result 29 Mar 2013 11:19 AM recorded by: Divina Saldaña BP Systolic 135 mm[Hg] BP Diastolic 90 mm[Hg] Heart Rate 70 /min O2 SAT 98 % Advance Directives * No Advance Directives available. Encounters * Appointment 03/29/2013
--- OUTSIDE RECORDS SUMMARY | 2018-07-17 12:27 | XMS REPORT | Continuity of Care Document ---
Author Author [facility] Organization [facility] Address Unknown Phone Unavailable Allergies Active Description Code Type Severity Reaction Onset Reported/Identified Relationship to Patient Clinical Status Yes No Known Allergies NKMA N/A N/A 11/01/2017 Yes No Known Allergies No Known Allergies Drug Allergy Unknown N/A 2016 Yes No Known Allergies No Known Allergies Drug Allergy Unknown N/A 2017 Medications Medication Packaging Start Date Stop Date Route Dosage Sig escitalopram(Lexapro 10 mg oral tablet) tabs 11/01/2017 Oral mg mg=tabs, Oral, Daily, 0 Refill(s) gabapentin(gabapentin 300 mg oral capsule) caps 11/01/2017 Oral mg mg=caps, Oral, TID, 0 Refill(s) ALPRAZolam(Xanax) 11/01/2017 Oral Oral, TID, 0 Refill(s) ketorolac(Toradol) 1 mL 11/01/2017 11/01/2017 IntraMuscular 30 mg 30 mg=1 mL, IntraMuscular, Once naproxen(naproxen 250 mg oral tablet) 1 tabs 11/01/2017 11/04/2017 Oral 250 mg 250 mg=1 tabs, Oral, q8hr, PRN: as needed for pain, 12 tabs, 0 Refill(s) methyl salicylate topical(Icy Hot topical ointment) 1 sophia 11/01/2017 11/05/2017 Topical 1 sophia, Topical, TID, 30 g, 0 Refill(s) Problems Date Dx Coded Attending Type Code Diagnosis Diagnosed By 10/10/2013 Working E78.5 Hyperlipidemia 10/10/2013 Working F41.9 Anxiety 10/10/2013 Working K40.90 Inguinal hernia 10/10/2013 Working M54.5 Lower back pain 10/10/2013 Tristen Matthews Working E78.5 Hyperlipidemia 10/10/2013 Tristen Matthews Working F41.9 Anxiety 10/10/2013 Tristen Matthews Working K40.90 Inguinal hernia 10/10/2013 Tristen Matthews Working M54.5 Lower back pain 12/20/2013 Working Pain in wrist, left Chuck, Verlin K 12/20/2013 Tristen Matthews Working Pain in wrist, left Chuck, Lazarolin K 11/07/2014 Working M25.519 Shoulder pain Dereck Zaragoza 11/07/2014 Working S46.919A Shoulder strain Dereck Zaragoza 11/07/2014 Working Z02.6 Encounter related to worker's compensation claim Dereck Zaragoza 11/07/2014 Tristen Matthews Working M25.519 Shoulder pain Dereck Zaragoza 11/07/2014 Tristen Matthews Working S46.919A Shoulder strain Dereck Zaragoza 11/07/2014 Tristen Matthews Working Z02.6 Encounter related to worker's compensation claim Dereck Zaragoza 01/01/2016 Tristen Matthews Working S67.22XA Crushing injury of hand, left Tristen Matthews 07/22/2017 Luís WYATT, Nirali Butcher F V70.5 Health exam for pre-employment screening 11/04/2017 Dolly Olivarez Edmundo Final F17.210 Nicotine dependence, cigarettes, uncomplicated 11/04/2017 Dolly Olivarez Edmundo Final F32.9 Major depressive disorder, single episode, unspecified 11/04/2017 Dolly Olivarez Edmundo Final G89.29 Other chronic pain 11/04/2017 Dolly Olivarez Trae Reason M25.551 Pain in right hip 11/04/2017 Dolly Olivarez Edmundo Final M54.9 Dorsalgia, unspecified 11/04/2017 Dolly Olivarez Edmundo Final S76.011A Strain of muscle, fascia and tendon of right hip, initial encounter 11/04/2017 Dolly Olivarez Edmundo Final X50.0XXA Overexertion from strenuous movement or load, initial encounter 11/04/2017 Dolly Olivarez Edmundo Final Y92.29 Other specified public building as the place of occurrence of the external Procedures Code Description [place] [address] Screening visual acuity, quantitative, bilateral 07/22/2017 94317 Pure tone audiometry ( threshold); air only 07/22/2017 01809 Drug screen; multiple drug classes; chromatographic 07/22/2017 45367 Office visit - new pt, level 2 07/22/2017 Results Test Result Range Urinalysis with reflex microscopic - 11/01/17 15:52 Appearance Clear NA Bilirubin Negative NA Negative Blood Negative NA Negative Color Lt Yellow NA Glucose, Urine Negative Negative Ketones Negative Negative Leukocyte Esterase Negative NA Negative Nitrites Negative NA Negative pH 7.0 NA 5.0-8.0 Protein Negative Negative Specific [place] 1.004 NA 1.003-1.030 UA Collection type Clean Catch NA Urobilinogen Negative mg/dL <1.0 Urine Drug Screen - 11/01/17 15:52 Amph/Meth/Ecstasy Negative NA Barbiturates Negative NA Benzodiazepine Positive NA Cannabinoid Negative NA Cocaine Negative NA EDDP (Methadone met.) Negative NA Opiate Negative NA Phencyclidine (PCP) Negative NA CBC WITH PLATELET AND DIFFERENTIAL - 05/27/18 16:00 SEGS 75.7 % NRG *BASOPHILS 0.2 % NRG *EOSINOPHILS 1.1 % NRG AUTOMATED DIFF PERFORMED NRG *LYMPHOCYTES 17.1 % NRG *MONOCYTES 5.9 % NRG *ABSOLUTE BASOPHILS 0.00 10*3/uL 0.00-0.20 *ABSOLUTE EOSINOPHILS 0.10 10*3/uL 0.00-0.50 *ABSOLUTE LYMPHOCYTES 1.50 10*3/uL 1.00-3.00 *ABSOLUTE MONOCYTES 0.50 10*3/uL 0.30-1.00 *ABSOLUTE NEUTROPHILS 6.70 10*3/uL 1.80-7.80 MPV 9.7 fL 7.4-10.4 PLATELETS 238 10*3/uL 159-386 WBC 8.9 10*3/uL 3.6-11.2 RBC 4.93 4.06-5.63 HEMOGLOBIN 14.6 12.5-16.3 HEMATOCRIT 43.4 % 36.7-47.1 MCV 88.1 fL 80.0-100.0 MCH 29.6 pg 27.0-33.0 MCHC 33.6 32.0-36.0 RDW 13.5 % 12.3-17.0 RDWSD 42.0 37.1-47.8 COMPREHENSIVE METABOLIC PANEL - 05/27/18 16:00 BILIFUBIN TOTAL 0.40 0.20-1.00 TOTAL PROTEIN 6.8 6.4-8.2 ALBUMIN 3.9 3.4-5.0 *GLOBULIN 2.9 2.3-3.5 *A/G RATIO 1.3 1.5-2.2 ALK PHOS 54 U/L 46-116 ALT (SGPT) 45 U/L 14-59 AST (SGOT) 21 U/L 15-37 GFR ESTIMATION - 05/27/18 16:00 *GFR EST NON AFR BRUNEIAN >90 mL/min NRG *GRFA EST AFR AMER >90 mL/min NRG LIPASE - 05/27/18 16:00 LIPASE 74 U/L 73-393 TROPONIN-I - 05/27/18 16:00 TROPONIN-I <0.017 ng/mL 0.000-0.056 URINALYSIS (CULTURE PRN) - 05/27/18 16:49 *URINE APPEARANCE CLEAR CLEAR *URINE BILIRUBIN NEGATIVE NEGATIVE *URINE BLOOD NEGATIVE NEGATIVE *URINE GLUCOSE NEGATIVE NEGATIVE *URINE KETONES NEGATIVE NEGATIVE *URINE LEUKOCYTES NEGATIVE NEGATIVE *URINE NITRITES NEGATIVE NEGATIVE URINE PH 6.5 5.0-8.0 *URINE PROTEIN NEGATIVE NEGATIVE URINE SPECIFIC GRAVITY 1.019 1.001-1.035 *URINE UROBILINOGEN NORMAL NORMAL (0.2-1.0) *URINE COLOR LIGHT YELLOW COLORLESS - CALE URINALYSIS (CULTURE PRN) - 06/01/18 11:40 *URINE APPEARANCE CLEAR CLEAR *URINE BILIRUBIN NEGATIVE NEGATIVE *URINE BLOOD NEGATIVE NEGATIVE *URINE GLUCOSE NEGATIVE NEGATIVE *URINE KETONES NEGATIVE NEGATIVE *URINE LEUKOCYTES NEGATIVE NEGATIVE *URINE NITRITES NEGATIVE NEGATIVE URINE PH 7.0 5.0-8.0 *URINE PROTEIN NEGATIVE NEGATIVE URINE SPECIFIC GRAVITY 1.006 1.001-1.035 *URINE UROBILINOGEN NORMAL NORMAL (0.2-1.0) *URINE COLOR LIGHT YELLOW COLORLESS - CALE CBC WITH PLATELET AND DIFFERENTIAL - 06/01/18 11:46 SEGS 73.0 % NRG *BASOPHILS 0.6 % NRG *EOSINOPHILS 2.2 % NRG AUTOMATED DIFF PERFORMED NRG *LYMPHOCYTES 19.3 % NRG *MONOCYTES 4.9 % NRG *ABSOLUTE BASOPHILS 0.10 10*3/uL 0.00-0.20 *ABSOLUTE EOSINOPHILS 0.30 10*3/uL 0.00-0.50 *ABSOLUTE LYMPHOCYTES 2.20 10*3/uL 1.00-3.00 *ABSOLUTE MONOCYTES 0.60 10*3/uL 0.30-1.00 *ABSOLUTE NEUTROPHILS 8.50 10*3/uL 1.80-7.80 MPV 9.6 fL 7.4-10.4 PLATELETS 269 10*3/uL 159-386 WBC 11.6 10*3/uL 3.6-11.2 RBC 5.47 4.06-5.63 HEMOGLOBIN 16.2 12.5-16.3 HEMATOCRIT 47.7 % 36.7-47.1 MCV 87.3 fL 80.0-100.0 MCH 29.6 pg 27.0-33.0 MCHC 33.9 32.0-36.0 RDW 13.6 % 12.3-17.0 RDWSD 41.6 37.1-47.8 COMPREHENSIVE METABOLIC PANEL - 06/01/18 11:46 SODIUM 139 mmol/L 136-145 POTASSIUM 3.9 mmol/L 3.5-5.1 CHLORIDE 101 mmol/L 98-107 TCO2 27.7 mmol/L 21.0-32.0 *ANION GAP 10.3 mmol/L 8.0-16.0 BUN 12 7-18 CREATININE 1.09 0.70-1.30 *BUN/CREATININE RATIO 11.0 9.1-17.0 GLUCOSE 109 65-99 CALCIUM 9.4 8.5-10.1 BILIFUBIN TOTAL 0.40 0.20-1.00 TOTAL PROTEIN 7.8 6.4-8.2 ALBUMIN 4.4 3.4-5.0 *GLOBULIN 3.4 2.3-3.5 *A/G RATIO 1.3 1.5-2.2 ALK PHOS 67 U/L 46-116 ALT (SGPT) 43 U/L 14-59 AST (SGOT) 20 U/L 15-37 GFR ESTIMATION - 06/01/18 11:46 *GFR EST NON AFR BRUNEIAN 80 mL/min NRG *GRFA EST AFR AMER >90 mL/min NRG C-REACTIVE PROTEIN - 06/01/18 11:46 C-REACTIVE PROTEIN 0.08 0.00-0.30 LIPASE - 06/01/18 11:46 LIPASE 124 U/L 73-393 GFR ESTIMATION - 06/09/18 17:55 *GFR EST NON AFR BRUNEIAN 76 mL/min NRG *GRFA EST AFR AMER 88 mL/min NRG COMPREHENSIVE METABOLIC PANEL - 06/09/18 17:55 SODIUM 137 mmol/L 136-145 POTASSIUM 3.8 mmol/L 3.5-5.1 CHLORIDE 101 mmol/L 98-107 TCO2 27.1 mmol/L 21.0-32.0 *ANION GAP 8.9 mmol/L 8.0-16.0 BUN 7 7-18 CREATININE 1.14 0.70-1.30 *BUN/CREATININE RATIO 6.1 9.1-17.0 GLUCOSE 133 65-99 CALCIUM 8.3 8.5-10.1 BILIFUBIN TOTAL 0.30 0.20-1.00 TOTAL PROTEIN 7.2 6.4-8.2 ALBUMIN 3.9 3.4-5.0 *GLOBULIN 3.3 2.3-3.5 *A/G RATIO 1.2 1.5-2.2 ALK PHOS 67 U/L 46-116 ALT (SGPT) 82 U/L 14-59 AST (SGOT) 24 U/L 15-37 LIPASE - 06/09/18 17:55 LIPASE 80 U/L 73-393 CBC WITH PLATELET AND DIFFERENTIAL - 06/09/18 17:55 SEGS 82.3 % NRG *BASOPHILS 0.4 % NRG *EOSINOPHILS 0.4 % NRG AUTOMATED DIFF PERFORMED NRG *LYMPHOCYTES 13.3 % NRG *MONOCYTES 3.6 % NRG *ABSOLUTE BASOPHILS 0.00 10*3/uL 0.00-0.20 *ABSOLUTE EOSINOPHILS 0.00 10*3/uL 0.00-0.50 *ABSOLUTE LYMPHOCYTES 1.60 10*3/uL 1.00-3.00 *ABSOLUTE MONOCYTES 0.40 10*3/uL 0.30-1.00 *ABSOLUTE NEUTROPHILS 9.70 10*3/uL 1.80-7.80 MPV 9.6 fL 7.4-10.4 PLATELETS 277 10*3/uL 159-386 WBC 11.8 10*3/uL 3.6-11.2 RBC 5.15 4.06-5.63 HEMOGLOBIN 15.2 12.5-16.3 HEMATOCRIT 45.1 % 36.7-47.1 MCV 87.6 fL 80.0-100.0 MCH 29.6 pg 27.0-33.0 MCHC 33.8 32.0-36.0 RDW 14.2 % 12.3-17.0 RDWSD 43.8 37.1-47.8 UR DRUGS OF ABUSE SCREEN - 06/09/18 18:34 *COCAINE NEGATIVE ng/mL NEG <150 *BARBITURATES NEGATIVE ng/mL NEG <200 *BENZODIAZEINE NEGATIVE ng/mL NEG <200 *AMPHETAMINE NEGATIVE ng/mL NEG <500 *CANNABINOIDS NEGATIVE NEG <50 *OPIATES POSITIVE ng/mL NEG <300 *PCP NEGATIVE ng/mL NEG <25 URINALYSIS, AUTOMATED WITH MICROSCOPY - 06/09/18 18:34 *URINE APPEARANCE CLEAR CLEAR *URINE BILIRUBIN NEGATIVE NEGATIVE *URINE BLOOD NEGATIVE NEGATIVE *URINE GLUCOSE NEGATIVE NEGATIVE *URINE KETONES NEGATIVE NEGATIVE *URINE LEUKOCYTES NEGATIVE NEGATIVE *URINE NITRITES NEGATIVE NEGATIVE URINE PH 6.5 5.0-8.0 *URINE PROTEIN 10 NEGATIVE URINE SPECIFIC GRAVITY 1.005 1.001-1.035 *URINE UROBILINOGEN NORMAL NORMAL (0.2-1.0) *URINE COLOR COLORLESS COLORLESS - CALE CBC W/DIFF - 06/11/18 09:42 BASOPHIL # 0.0 k/cumm 0.0-0.2 BASOPHIL % 0.4 % 0-1 EOSINOPHIL # 0.4 k/cumm 0.1-0.5 EOSINOPHIL % 4.4 % 2-4 GRANULOCYTE # 4.6 k/cumm 2.0-9.0 GRANULOCYTE % 55.8 % 50-75 LYMPHOCYTE # 2.7 k/cumm 1.0-4.0 LYMPHOCYTE % 32.5 % 20-30 MEAN CELL HGB 29.7 pg 27.0-33.0 MEAN CELL HGB CONCENTRATION 34.1 g/dL 32.0-37.0 MEAN CELL VOLUME 87.0 fl 80.0-100.0 MONOCYTE # 0.5 k/cumm 0.1-1.0 MONOCYTE % 6.4 % 4-6 MEAN PLATELET VOLUME 10.7 fl 8.5-10.9 RED BLOOD CELL 4.78 m/cumm 4.00-6.00 RED CELL DISTRIBUTION WIDTH 13.2 % 11.0-15.6 WHITE BLOOD CELL 8.2 k/cumm 5.0-10.0 HEMOGLOBIN 14.2 gm/dL 14.0-18.0 HEMATOCRIT 41.6 % 40.0-54.0 PLATELET COUNT 266 k/cumm 150-400 IMMATURE GRANULOCYTE % 0.5 % 0.0-0.6 NRBC % 0.0 /100 WBC 0.0-0.0 IMMATURE GRANULOCYTE # 0.04 k/cumm 0.00-0.09 METABOLIC PANEL, COMPREHN - 06/11/18 09:42 POTASSIUM 4.1 mmol/L 3.5-5.3 EST GFR (MDRD) > 60 mL/min > 59 ANION GAP 4 mmol/L 5-15 EST CrCl (CG) > 60 mL/min > 59 GLUCOSE 100 mg/dL 70-99 CALCIUM 8.9 mg/dL 8.5-10.1 BLOOD UREA NITROGEN 12 mg/dL 7-20 CREATININE 1.0 mg/dL 0.7-1.3 SODIUM 138 mmol/L 135-148 CHLORIDE 104 mmol/L 98-110 AST/SGOT 22 Units/L 10-37 ALT/SGPT 59 Units/L < 66 CARBON DIOXIDE 30 mmol/L 21-32 TOTAL PROTEIN 6.8 gm/dL 6.4-8.2 ALBUMIN 3.8 gm/dL 3.4-5.0 BILI TOTAL 0.2 mg/dL 0.0-1.0 ALKALINE PHOSPHATASE TOTAL 58 IU/L 45-117 LIPASE - 06/11/18 09:42 LIPASE 120 Units/L 73-393 CBC WITH PLATELET AND DIFFERENTIAL - 06/16/18 18:50 SEGS 60.7 % NRG *BASOPHILS 0.5 % NRG *EOSINOPHILS 8.7 % NRG AUTOMATED DIFF PERFORMED NRG *LYMPHOCYTES 23.3 % NRG *MONOCYTES 6.8 % NRG *ABSOLUTE BASOPHILS 0.00 10*3/uL 0.00-0.20 *ABSOLUTE EOSINOPHILS 0.80 10*3/uL 0.00-0.50 *ABSOLUTE LYMPHOCYTES 2.10 10*3/uL 1.00-3.00 *ABSOLUTE MONOCYTES 0.60 10*3/uL 0.30-1.00 *ABSOLUTE NEUTROPHILS 5.40 10*3/uL 1.80-7.80 MPV 9.1 fL 7.4-10.4 PLATELETS 238 10*3/uL 159-386 WBC 8.8 10*3/uL 3.6-11.2 RBC 4.68 4.06-5.63 HEMOGLOBIN 14.0 12.5-16.3 HEMATOCRIT 40.9 % 36.7-47.1 MCV 87.2 fL 80.0-100.0 MCH 29.8 pg 27.0-33.0 MCHC 34.2 32.0-36.0 RDW 14.1 % 12.3-17.0 RDWSD 43.8 37.1-47.8 COMPREHENSIVE METABOLIC PANEL - 06/16/18 18:50 BILIFUBIN TOTAL 0.20 0.20-1.00 TOTAL PROTEIN 6.7 6.4-8.2 ALBUMIN 3.8 3.4-5.0 *GLOBULIN 2.9 2.3-3.5 *A/G RATIO 1.3 1.5-2.2 ALK PHOS 59 U/L 46-116 ALT (SGPT) 44 U/L 14-59 AST (SGOT) 17 U/L 15-37 GFR ESTIMATION - 06/16/18 18:50 *GFR EST NON AFR BRUNEIAN 81 mL/min NRG *GRFA EST AFR AMER >90 mL/min NRG LIPASE - 06/16/18 18:50 LIPASE 110 U/L 73-393 Encounters ACCT No. Visit Date/Time Discharge Status Pt. Type Provider Facility Loc./Unit Complaint [id number] 06/09/2018 17:34:00 06/09/2018 19:49:44 DIS Emergency EVAN HERZOG BACK PAIN, DIARRHEA [id number] 06/02/2018 05:06:00 06/02/2018 05:20:23 DIS Emergency ER, PHYSICIAN <PV2.3.2>ABD PAIN</PV2.3.2><PV2.3.2>LEFT WITHOUT BEING SEEN</ PV2.3.2> [id number] 06/01/2018 11:01:00 06/02/2018 00:46:07 DIS Emergency SULEIMAN BURNS A ABD PAIN [id number] 05/27/2018 14:18:00 05/28/2018 02:03:12 DIS Emergency CAROLE CHOI FLANK PAIN [id number] 06/23/2018 05:13:00 Document Registration [id number] 06/16/2018 18:05:00 Document Registration [id number] 11/01/2017 15:27:00 11/01/2017 16:48:00 DIS Emergency Dolly Olivarez [facility] ED injured hip, work comp [id number] 11/02/2017 05:15:57 Document Registration [id number] 01/03/2016 12:00:49 ACT Outpatient [address] [id number] 01/02/2016 07:08:58 Document Registration [id number] 06/11/2018 09:21:00 06/11/2018 10:52:00 DIS Emergency Heydi CRAIG, [facility] [id number] 11/12/2017 23:09:00 11/13/2017 01:14:00 DIS Emergency Dyllan CRAIG, [facility] W.VINCE [id number] 05/09/2016 00:00:00 Document Registration [id number] 07/22/2017 10:14:21 07/22/2017 10:43:23 DIS Outpatient Luís WYATT, Nirali CARPENTER_Earl
--- OUTSIDE RECORDS SUMMARY | 2018-07-17 12:27 | XMS REPORT ---
Author Author Tristen Matthews Organization Unknown Address [address] [place], [place] [id number] Phone Care Team Providers Care Compliance Coordinator Name Role Phone Lewisadriana Tristen Butcher PP [...] (V16.3); (Active) Social History * Occupation: Comments: [employer] (Active) * Tobacco Use Comments: occasionally quit 10 years ago (V15.82); (Active ) * Marital History - (V61.03); (Active) * Former Smoker (V15.82); (Active) * No History of Alcohol Use (Active) Vital Signs Date Description Test Result 10 May 2013 08:49 AM recorded by: Sandra Pierce Heart Rate 69 /min O2 SAT 99 % Resipration Rate 14 /min Advance Directives * No Advance Directives available. Encounters * Appointment 05/10/2013
--- OUTSIDE RECORDS SUMMARY | 2018-07-17 12:27 | XMS REPORT ---
Author Author Tristen Matthews Organization Unknown Address [address] [place], [place] [phone] Phone Care Team Providers Care Client Architect Name Role Phone Lewisadriana Tristen Butcher PP [...] (V16.3); (Active) Social History * Occupation: Comments: [employer] (Active) * Tobacco Use Comments: occasionally quit 10 years ago (V15.82); (Active ) * Marital History - (V61.03); (Active) * Former Smoker (V15.82); (Active) * No History of Alcohol Use (Active) Vital Signs Date Description Test Result 15 Apr 2013 04:56 PM recorded by: Sandra Pierce Heart Rate 74 /min Resipration Rate 16 /min O2 SAT 96 % 13 Apr 2013 01:33 PM recorded by: Divina Saldaña Temperature 97.9 F Heart Rate 67 /min O2 SAT 97 % Advance Directives * No Advance Directives available. Encounters * AUDIT 04/16/2013
--- NOTE | 2018-07-17 12:29 | ED Back Pain ---
General Stated Complaint: BACK PAIN Source of Information: Patient Exam Limitations: No Limitations History of Present Illness Date Seen by Provider: Jul 17, 2018 Time Seen by Provider: 12:24 Initial Comments To ER with right lower back pain. This begins in the posterior right hip and travels down the right leg all the way down to the toes. He's had a history of back pain for "better part of 16 years" he states. 2 weeks ago he fell and has had a worsening of this chronic right low back pain that extends down the right leg. He was seen at [facility] had a CT done he states was told it was normal. He was apparently given hydrocodone at that time according Cristian rmey. 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 He denies fevers , numbness of genitals, history of IV drug use or history of cancer. Cristian 71lbs shows prescriptions for oxycodone and hydrocodone and Xanax from several prescribers in the [facility]. He assures me he did not fall today or injure his back, he felt his leg was GOING to give out and so he went and sat on a bench. Location: Lumbar Spine, Paraspinous Muscles Timing/Duration: 1 Week Severity: Moderate Pain/Injury Location: Lower Extremity Associated Symptoms: lower back pain Allergies and Home Medications Allergies Coded Allergies: No Known Drug Allergies (Unverified , 07/17/18) Home Medications Methocarbamol 750 Mg Tablet, 750 MG PO Q4H PRN for PAIN-MODERATE TO SEVERE Prescribed by: EVAN GARZA on 07/17/18 1230 Prednisone 20 Mg Tab, 40 MG PO DAILY Prescribed by: EVAN GARZA on 07/17/18 1230 Patient Home Medication List Home Medication List Reviewed: Yes Review of Systems Constitutional: see HPI EENTM: see HPI Respiratory: no symptoms reported Cardiovascular: no symptoms reported Genitourinary: no symptoms reported Musculoskeletal: see HPI, back pain Skin: no symptoms reported Psychiatric/Neurological: No Symptoms Reported Physical Exam Vital Signs Vital Signs - First Documented 07/17/18 12:19 Temp 98.7 Pulse 100 Resp 19 B/P (MAP) 116/86 (96) Pulse Ox 96 O2 Delivery Room Air Capillary Refill : Height, Weight, BMI Height: '" Weight: lbs. oz. kg; BMI Method: General Appearance: No Apparent Distress, WD/WN HEENT: PERRL/EOMI, TMs Normal Neck: Full Range of Motion, Normal Inspection Respiratory: No Accessory Muscle Use, No Respiratory Distress Gastrointestinal: Non Tender, Soft Extremity: Normal Capillary Refill, Normal Inspection Neurologic/Psychiatric: Alert, Oriented x3 Skin: Normal Color, Warm/Dry Right foot plantar flexion and dorsiflexion strength 4 out of 5 as compared to 5 out of 5 on the left Progress/Results/Core Measures Results/Orders My Orders Orders - EVAN GARZA APRN Ketorolac Injection (Toradol Injection) (07/17/18 12:30) Orphenadrine Injection (Norflex Injectio (07/17/18 12:30) Medications Given in ED Current Medications Medications Dose Ordered Sig/Sunitha Route Start Time Stop Time Status Last Admin Dose Admin Ketorolac Tromethamine 60 mg ONCE ONCE IM 07/17/18 12:30 07/17/18 12:31 DC 07/17/18 12:31 60 MG Orphenadrine Citrate 60 mg ONCE ONCE IM 07/17/18 12:30 07/17/18 12:31 DC 07/17/18 12:30 60 MG Vital Signs/I&O 07/17/18 12:19 Temp 98.7 Pulse 100 Resp 19 B/P (MAP) 116/86 (96) Pulse Ox 96 O2 Delivery Room Air Departure Communication (Admissions) Patient is very upset that he is not receiving hydrocodone or oxycodone for pain control. He would like to speak with the accounting manager controller. I did educate him on why I'm not doing this given his [place] record and previous opiate prescriptions. 1340-Patient has now spoken with Dr. Farnsworth and the accounting manager controller Alejandrina. Still refused to leave so Police Department was called. Impression Primary Impression: Lumbar radiculopathy Disposition: HOME, SELF-CARE Condition: Stable Departure-Patient Inst. Decision time for Depature: 12:27 Referrals: NO,LOCAL PHYSICIAN (PCP/Family) Primary Care Physician Patient Instructions: Radiculopathy Add. Discharge Instructions: 1. Unfortunately this pain may warrant a trip back to your hometown to see your primary care provider to schedule an MRI of your back in the upcoming weeks. No heavy lifting or bending at the waist, bend at the knees instead trying to keep her back straight. Return to ER for any loss of sensation of your genitals, fevers, losing control of your bowel or bladder . Scripts Methocarbamol (Robaxin-750) 750 Mg Tablet 750 MG PO Q4H PRN for PAIN-MODERATE TO SEVERE, #20 TAB Prov: EVAN GARZA APRN 07/17/18 Prednisone (Prednisone) 20 Mg Tab 40 MG PO DAILY, #8 TAB Prov: EVAN GARZA APRN 07/17/18 Work/School Note: Work Release Form Date Seen in the Emergency Department: Jul 17, 2018 Return to Work: Jul 19, 2018 Other Restrictions Listed Below: No lifting over 5 lbs until 07/22/18 EVAN GARZA APRN Jul 17, 2018 12:29
[2018-07-17] MEDS ORDERED: PRD20T PO (12:30)
[2018-07-17] MEDS ORDERED: METH-313 PO (12:30)
[2018-07-17] MEDS: ORPHENADRINE 60 MG/2 ML (NORFLEX) AMP IM ONE (12:30)
[2018-07-17] MEDS: KETOROLAC 60 MG/2 ML VIAL IM ONE (12:31)
[2018-07-17 13:43] VITALS: BP 116/86
== END 2018-07-17 13:43 | disposition home or self-care (01) ==
LOC: ER 12:20
DX: M54.16 Radiculopathy, lumbar region (principal); Z79.52 Long term (current) use of systemic steroids
CPT/HCPCS: 96372; 99284